=== PATIENT | male | born 1965 | race Caucasian/White ===

== ENCOUNTER 2023-01-13 13:07 | Outpatient (CLI) | payer OTHER ==
--- NOTE | 2023-01-13 13:52 | SLEEP CARE CONSULTATION ---
Information from patient questionnaire entered by Sameer Wallace. I have reviewed and concur with the information entered by Sameer Wallace. This document represents the service I personally performed and the decisions made by me, Reyna Car ARNP. History of Present Illness Service Date and Time: 01/13/2023 1307 Reason for Visit: New patient Chief Complaint: reports: Unrefreshed sleep, Snoring, Frequent awakenings at night Date of Onset: 5+yrs Usual bedtime: 2100 Time it takes to fall asleep: 45min Snores at night: Yes Observed to quit breathing while asleep: No Sleeps alone due to snoring: No Number of times waking at night: 2-3 Reasons for waking at night: reports: Snoring, Bathroom, Other (unknown). denies: Choking, Gasping for air Toss, Turn, or Twitch while sleeping: Yes Recalls having dreams: No (once in a while he does remember) Usually gets out of bed at: 0500 Feels refreshed in the morning: No (feels groggy, takes a bit to get going) Morning headache: No Sleepy or fatigued during the day: Yes Ever fallen asleep while driving: No Takes day naps: Yes (4-5 times a week, lasts about 20 minutes normally) Dreams during day naps: No Prior sleep studies: No Additional HPI information: I had the pleasure of seeing AMY HERNANDEZ today regarding the possibility of him having a sleep disorder. His current complaints are frequent night awakenings, snoring and unrefreshed sleep. He states he does not sleep well at night and when he comes home at night he has no energy to do anything. He used to travel to [facility] for couple months at a time and then come home for couple weeks. He was working a afternoon to evening schedule. He stopped traveling and his schedule has changed to a day schedule and is very tired by 2 PM. His is waking him up at night because of his snoring. He used to have a co-worker who used to fall asleep all the time who was diagnosed with sleep apnea and got a CPAP. He felt he was a different person after he used the CPAP. He is here to be checked himself. His has not told him that he stops breathing at night. He states he tries to sleep on his sides but will roll back and forth on his shoulders. 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 Patient is and lives in [place]. Have you smoked in the past 12 months: No (chewing tobacco) Cigarettes per day (20/pack): 20 Years of smokin Quit date: 2000 Smoking Pack Years: 6.0 Alcohol use: Yes Alcohol amount and frequency: 2-3 one or twice a week Caffeine use: Yes Caffeine amount and frequency: 2 mugs daily Family History Family history of sleep disordered breathing: Yes Family Hx Sleep Apnea: Mother: Snoring, Father: Snoring, Sibling: Snoring Allergies and Home Medications Known drug allergies: No Drug allergies reviewed: Yes (NKDA) Home medication list reviewed: Yes Allergy and home medication list: Medications: Lisinopril 10 mg daily Review of Systems Weight gain over past 5 years: 30 Cardiovascular: reports: high blood pressure Gastrointestinal: reports: heartburn Neurological: denies: headaches Psychiatric: denies: anxiety, depression Ear/Nose/Throat: denies: tonsillectomy Endocrine: denies: thyroid disease Immunologic: reports: sneezing, rash, allergies to food or environment Physical Exam Vital signs obtained and entered by: SAMEER Gallagher MA Blood Pressure: 144/84 (LEFT ARM) Cuff size: long Heart Rate: 106 O2 Saturation: 97 Height: 6 ft Weight: 309 lb 12.8 oz Body Mass Index: 42.0 BMI Classification: Morbidly Obese Neck circumference: 20.5 Mouth and throat: narrow oropharynx Soft palate: normal Hard palate: normal Uvula: normal Uvula visualization: 0% Mallampati Class IV Tongue: normal in size Tonsils: 1+ Neck: normal w/o lymphadenopathy or thyromegaly Heart: regular rate and rhythm Lungs: clear bilaterally Impression and Plan 1. Suspected Obstructive Sleep Apnea-Hypopnea Syndrome, as suggested by a history of loud and irregular snoring, morning headache, frequent awakening during the night, unrefreshed sleep and cognitive impairment. Narrow oropharynx and obesity are common predisposing factors for obstructive sleep apnea-hypopnea syndrome. I recommend proceeding to polysomnography to confirm the diagnosis and to assess severity. If the patient has significant sleep disordered breathing, a manual CPAP titration study will also be performed to find the optimal treatment pressure. I informed the patient of what the sleep studies involve and after some discussion, obtained agreement to proceed. The pathophysiology of obstructive sleep apnea-hypopnea syndrome was discussed with the patient and health risks of cardiovascular and cerebrovascular disease if not treated. Risks of drowsy driving discussed in detail and patient advised to avoid long distance driving and to dross puller at the first sign of drowsiness. Patient agreed to plan. * Schedule polysomnography * Avoid long distance driving or driving when feeling sleepy. * Avoid alcohol, sedative and muscle relaxant around bedtime. * Attempt to lose weight. * Review instructions provided by trained office staff on how to prepare for the sleep study. * Return for follow-up after sleep study completed. Counseling Topics: Weight loss health impact Visit Type: In Office Time Spent with Patient (minutes): 32 Provider Statement: I spent 100% of the Face to Face Visit with the patient with greater than 50% spent counseling the patient and coordination of care.
[2023-01-13 13:53] VITALS: BP 144/84
== END 2023-01-13 13:08 | disposition home or self-care (01) ==
LOC: SC 13:07
PROVIDERS: ATTEND Nurse Practitioner Family
DX: R06.83 Snoring (principal); R51.9 Headache, unspecified; G47.8 Other sleep disorders; G47.10 Hypersomnia, unspecified; R41.89 Other symptoms and signs involving cognitive functions and awareness; E66.01 Morbid (severe) obesity due to excess calories; I10 Essential (primary) hypertension; Z68.41 Body mass index [BMI] 40.0-44.9, adult; Z87.891 Personal history of nicotine dependence
CPT/HCPCS: 99203; 99212

== ENCOUNTER 2023-02-18 14:23 | Outpatient (CLI) | payer OTHER | END 2023-02-18 14:24 | disposition home or self-care (01) | LOC: SC 14:23 | PROVIDERS: ATTEND Nurse Practitioner Family | DX: G47.33 Obstructive sleep apnea (adult) (pediatric) (principal); R09.02 Hypoxemia; I10 Essential (primary) hypertension; E66.01 Morbid (severe) obesity due to excess calories; Z68.37 Body mass index [BMI] 37.0-37.9, adult | CPT/HCPCS: 95806 ==

== ENCOUNTER 2023-03-09 11:28 | Outpatient (CLI) | payer OTHER ==
[2023-03-09 12:05] VITALS: BP 124/82
--- NOTE | 2023-03-09 12:05 | SLEEP CARE CONSULTATION ---
Information from patient questionnaire entered by Kaur Wallace. I have reviewed and concur with the information entered by Kaur Wallace. This document represents the service I personally performed and the decisions made by me, Reyna Car ARNP. History of Present Illness Service Date and Time: 03/09/2023 112 Initial [place] Sleepiness Scale score: 6 (01/13/23) Current [place] Sleepiness Scale score: 5 (03/09/23) Additional HPI information: AMY HERNANDEZ returns for follow up and results of the recently performed home sleep study. I explained the pathophysiology behind obstructive sleep apnea. We then spent quite a bit of time discussing different treatment options. For mild obstructive sleep apnea, surgery and oral appliance are alternatives to nasal CPAP therapy but in moderate or severe cases, nasal CPAP is the most effective and reliable treatment. I reviewed the impact of weight changes on sleep apnea and strongly recommended losing weight. After some discussion, the patient opted to go with the nasal CPAP therapy. Nasal autoCPAP set at 4-15 cmH20 will be ordered with rationale explained. A manual titration study will be ordered if unable to find optimal pressure with office adjustments. I explained how CPAP machine works and what to expect when using the machine. Using CPAP every night in order to get used to it was emphasized. Patient advised to put CPAP mask on before getting into bed so as not to fall asleep without CPAP. To assist acclimation to CPAP use, it could also be used for a short time during day while reading or watching TV. The patient was instructed to call the CPAP supplier to discuss any mechanical problem that may occur. If the mask given is uncomfortable or is difficult to keep on through the night even with adjustment, contact the CPAP supplier as many will replace with another mask style if notified before 30 days. If snoring or perceives is not getting enough air or too much air from the machine, notify this office. Patient counseled not drink alcohol less than 4 hours before bedtime as it can increase snoring and apnea. Patient was cautioned about risks of drowsy driving until sleepiness symptoms resolve. Patient denies drowsy driving. Sleep Study - Results Type of Sleep Study: Home sleep study (COMPLETED 02/18/23) Prior sleep studies: No Polysomnography/Home Sleep Study results: Physician Impression: The quality of the study is good. The length of the study is adequate (> 240 minutes). Please also see the tabulated and graphic data. 1. Obstructive Sleep Apnea-Hypopnea (ICD-10 G47.33), moderate, with an AHI of 21.5/hr and joseph SaO2 of 76%. During the study, the patient had 89 apneas (89 obstructive, 0 central, 0 mixed) and 96 hypopneas. The longest episode lasted 144.5 seconds. The respiratory events occurred more frequently during non-supine sleep (supine AHI was 12.6 and non-supine, 22.80). 2. Hypoxemia (ICD-10 R09.02), moderate, with the lowest oxygen saturation of 76 % and 35.0 minutes with SaO2 under 90%. Baseline oxygen saturation was normal (Average oxygen s aturation was 92%). Allergies and Home Medications Known drug allergies: No Drug allergies reviewed: Yes Home medication list reviewed: Yes (no changes) Allergy and home medication list: Allergies No Known Drug Allergies Allergy (Verified 03/08/23 10:07) Review of Systems Review of systems same as previous: Yes (no changes) Physical Exam Vital signs obtained and entered by: KAUR Gallagher MA Blood Pressure: 124/82 (LEFT ARM) Cuff size: long Heart Rate: 94 O2 Saturation: 97 Height: 6 ft Weight: 307 lb 12.8 oz Body Mass Index: 41.7 BMI Classification: Morbidly Obese Impression and Plan 1. Obstructive Sleep Apnea-Hypopnea Syndrome, moderate, with lowest oxygen saturation of 76%. Obviously this is the cause of the patients symptoms of unrefreshed sleep, and excessive daytime sleepiness. Positive pressure therapy could benefit hypertension. As mentioned above, the patient will be started on nasal autoCPAP therapy with pressure set at 4-15 cmH2O. Compliance guidelines also reviewed. A copy of compliance guidelines will be given for reference at check out. Because the apnea is more severe non-supine, I instructed to avoid sleeping non-supine using pillow positioning until able to start CPAP use. 2. Hypoxemia, moderate, with a joseph oxygen saturation of 76% and 35.0 minutes spent under 90%. His baseline oxygen saturation was normal with an average oxygen saturation of 93%. * Nasal auto CPAP therapy, pressure at 4-15 cm H2O. * Attempt to lose weight. * Avoid alcohol consumption near bedtime. * Avoid supine sleep until using CPAP. * The patient is again cautioned about driving until sleepiness completely resolves. * Return one month after CPAP obtained. I will assess response to therapy and compliance at that time. Counseling Topics: Sleeping position, Weight loss health impact Visit Type: In Office Time Spent with Patient (minutes): 20 Provider Statement: I spent 100% of the Face to Face Visit with the patient with greater than 50% spent counseling the patient and coordination of care.
== END 2023-03-09 11:29 | disposition home or self-care (01) ==
LOC: SC 11:28
PROVIDERS: ATTEND Nurse Practitioner Family
DX: G47.33 Obstructive sleep apnea (adult) (pediatric) (principal); R09.02 Hypoxemia; E66.01 Morbid (severe) obesity due to excess calories; Z68.41 Body mass index [BMI] 40.0-44.9, adult
CPT/HCPCS: 99212; 99213